=== PATIENT | female | born 1990 | race Caucasian/White ===

== ENCOUNTER 2019-06-22 17:27 | Emergency (ER) | payer BC ==
[~2019-06-22] VITALS: Ht 157.5 cm; Wt 63.5 kg
--- OUTSIDE RECORDS SUMMARY | 2019-06-22 17:31 | XMS REPORT ---
Author Author [facility] Organization [facility] Address Unknown Phone Unavailable Care Team Providers Care Certified Pest Control Technician Name Role Phone YOSVANY, BREA Unavailable Unavailable Gillian PERALTA Unavailable Unavailable Payers Payer Name Policy Type Policy Number Effective Date Expiration D ate Problems This patient has no known problems. Allergies, Adverse Reactions, Alerts Allergy Name Allergy Type Status Severity Reaction(s) Onset Date Inacti ve Date Treating Clinician Comments No Known Allergies DA Active U 2018-10-24 00:00:00 Medications This patient has no known medications. Results Test Description Test Time Test Comments Text Results Atomic Results Result Comments PLACENTA THIRD TRIMESTER 2018-10-29 14:31:00 RUN DATE: 10/29/18 [facility] PAGE 1 RUN TIME: 1618 Specimen Inquiry RUN USER: INTERFACE PATIENT: JAMAL CARTAGENA LOC: [facility] U #: [id number] AGE/SX: 28/F ROOM: [facility]2007 RE10/24/18REG DR: Lisset Ventura MD : 91 BED: A DIS: 10/29/18 STATUS: DIS IN TLOC: SPEC #: [id number] RECD: 10/26/18 STATUS: CHELSIE CARDONA #: [id number] JOZEF: 10/26/18- SUBM DR: Lisset Ventura MD ENTERED: 10/27/18 SP TYPE: PLACIII OTHR DR: Ilia Marcano MD ORDERED: LEVEL V SURGICA CODES: [id number] - PLACENTA, NOS COPIES TO: Lisset Ventura MD [address] [place], [place] [address] Ilia Marcano MD [address] [place], [place] [id number] PROCEDURES: LEVEL V SURGICA (Incomplete) TISSUES: PLACENTA, NOS - PLACENTA CLINICAL HISTORY 28 year old, 40.1 weeks, , section, PUPPS rash, failure to progress (wpd) FINAL DIAGNOSIS Placenta, francisco gestation: - term placenta - umbilical cord: paramarginal insertion, 3-vessel, 42 cm length - placental weight: actual 575 gm (50th to 75th percentile) - no inflammation of cord, membranes, or villous placenta CPT Code: 58378 scott/pita dt: 10/29/18 GROSS DESCRIPTION The specimen was received in a container, labeled with the patient's name, unit number and designated "placenta". The following attributes are observed: Cord insertion: 2 cm from margin Cord length: 42 cm Number of vessels: 3 CONTINUED ON NEXT PAGE RUN DATE: 10/29/18 [facility] PAGE 2 RUN TIME: 1618 Specimen Inquiry RUN USER: INTERFACE SPEC #: [id number] PATIENT: JAMAL CARTAGENA #[id number] (Continued) GROSS DESCRIPTION (Continued) Cord c olor: Morris-red Other cord findings: Less than 12 twists per 10 cm surface findings: Steel blue, wrinkled, glistening with focal subchorionic fibrin deposition Vasculature: Displays unremarkable blood vasculature Membranes rupture site: 1 cm to margin Membrane color: Morris Other membrane findings: Thickened The trimmed placental weight: 575 gm Disk measurement: 18.0 x 16.0 x 3.5 cm in greatest dimension Accessory lobes: None Maternal surface: Lobulated and intact Parenchyma: Red, beefy, and spongy with peripheral fibrosis Parenchyma lesions: None Cassettes: A1 through A4 danette/wpd 10/27/18 @ 1725 Signed Frederick Baez Wilfred 10/29/18 1431 END OF REPORT CBC W/AUTO DIFF 2018-10-27 07:29:00 WHITE BLOOD CELL (test code = WBC) 15.9 K/mm3 6.6-12.1 Results verified by repeat analysis RED BLOOD CELL (test code = RBC) 3.48 M/mm3 3.45-5.01 HEMOGLOBIN (test code = HGB) 7.8 g/dL 10.7-13.9 HEMATOCRIT (test code = HCT) 26.7 % 32.1-42.1 MEAN CELL VOLUME (test code = MCV) 77 fL 84.1-94.8 MEAN CELL HGB (test code = MCH) 22.4 pg 27-35 MEAN CELL HGB CONCETRATION (test code = MCHC) 29.2 gm/dL 32 .2-34.1 RED CELL DISTRIBUTION WIDTH (test code = RDW) 16.8 % 12 .4-16.5 PLATELET COUNT (test code = PLT) 176 K/mm3 133-385 IMMATURE PLATELET FRACTION (test code = IPF) 0.0 % 0.0 -10.8 MEAN PLATELET VOLUME (test code = MPV) 12.6 fl 9.1-12.7 NEUTROPHIL % (test code = NT%) 80.7 % 56.5-79.4 LYMPHOCYTE % (test code = LY%) 11.7 % 14.3-34.3 MONOCYTE % (test code = MO%) 4.7 % 5.1-10.4 EOSINOPHIL % (test code = EO%) 2.1 % 0.1-3.0 BASOPHIL % (test code = BA%) 0.4 % 0.1-1.0 NEUTROPHIL # (test code = NT#) 12.9 K/mm3 LYMPHOCYTE # (test code = LY#) 1.9 K/mm3 MONOCYTE # (test code = MO#) 0.8 K/mm3 EOSINOPHIL # (test code = EO#) 0.33 K/mm3 BASOPHIL # (test code = BA#) 0.1 K/mm3 RBC MORPHOLOGY REQUIRED (test code = RBCM) NORMAL MARIFER L PLATELET MORPHOLOGY REQUIRED (test code = PLTMR) NORMAL NORMAL AG HEPATITIS B [id number] 23:52:00* Test Item Value Reference Range Comments AG HEPATITIS B SURFACE (test code = HBSAG) NONREACTIVE NONRE ACTIVE Comments to Human Resources Generalist: WILL SEND LABS IS CONSENT FORM SIGNED FOR HIV TESTING? B HEPATITIS C [id number] 23:52:00* Test Item Value Reference Range Comments AB HEPATITIS C (test code = HCVAB) NONREACTIVE NONREACTIVE SIGNAL TO CUTOFF (test code = CUTOFF) 0.02 <0.80 Comments to Human Resources Generalist: WILL SEND LABS IS CONSENT FORM SIGNED FOR HIV TESTING? YAB [id number] 23:52:00* Test Item Value Reference Range Comments AB TREPONEMA (test code = TREPAB) NONREACTIVE NONREACTIVE Comments to Human Resources Generalist: WILL SEND LABS IS CONSENT FORM SIGNED FOR HIV TESTING? B HIV 1 23:52:00* Test Item Value Reference Range Comments AB HIV 1 2 (test code = VEN89CE) NONREACTIVE NONREACTIVE Done by [employer] HIV Ag/Ab Combo Screen Comments to Human Resources Generalist: WILL SEND LABS IS CONSENT FORM SIGNED FOR HIV TESTING? YCBC W/AUTO [id number] 23:18:00* Test Item Value Reference Range Comments WHITE BLOOD CELL (test code = WBC) 9.2 K/mm3 6.6-12.1 RED BLOOD CELL (test code = RBC) 4.06 M/mm3 3.45-5.01 HEMOGLOBIN (test code = HGB) 9.1 g/dL 10.7-13.9 HEMATOCRIT (test code = HCT) 30.8 % 32.1-42.1 MEAN CELL VOLUME (test code = MCV) 76 fL 84.1-94.8 MEAN CELL HGB (test code = MCH) 22.4 pg 27-35 MEAN CELL HGB CONCETRATION (test code = MCHC) 29.5 gm/dL 32 .2-34.1 RED CELL DISTRIBUTION WIDTH (test code = RDW) 16.3 % 12 .4-16.5 PLATELET COUNT (test code = PLT) 187 K/mm3 133-385 IMMATURE PLATELET FRACTION (test code = IPF) 0.0 % 0.0 -10.8 MEAN PLATELET VOLUME (test code = MPV) 12.1 fl 9.1-12.7 NEUTROPHIL % (test code = NT%) 63.1 % 56.5-79.4 LYMPHOCYTE % (test code = LY%) 24.4 % 14.3-34.3 MONOCYTE % (test code = MO%) 9.2 % 5.1-10.4 EOSINOPHIL % (test code = EO%) 2.4 % 0.1-3.0 BASOPHIL % (test code = BA%) 0.5 % 0.1-1.0 NEUTROPHIL # (test code = NT#) 5.8 K/mm3 LYMPHOCYTE # (test code = LY#) 2.3 K/mm3 MONOCYTE # (test code = MO#) 0.9 K/mm3 EOSINOPHIL # (test code = EO#) 0.22 K/mm3 BASOPHIL # (test code = BA#) 0.1 K/mm3 RBC MORPHOLOGY REQUIRED (test code = RBCM) NORMAL MARIFER L PLATELET MORPHOLOGY REQUIRED (test code = PLTMR) NORMAL NORMAL AG HEPATITIS B [id number] 23:11:00* Test Item Value Reference Range Comments AG HEPATITIS B SURFACE (test code = HBSAG) NONREACTIVE NONRE ACTIVE Comments to Human Resources Generalist: WILL SEND LABS IS CONSENT FORM SIGNED FOR HIV TESTING? YAB HEPATITIS C [id number] 23:11:00* Test Item Value Reference Range Comments AB HEPATITIS C (test code = HCVAB) NONREACTIVE SIGNAL TO CUTOFF (test code = CUTOFF) <0.80 Comments to Human Resources Generalist: WILL SEND LABS IS CONSENT FORM SIGNED FOR HIV TESTING? YAB [id number] 23:11:00* Test Item Value Reference Range Comments AB TREPONEMA (test code = TREPAB) NONREACTIVE NONREACTIVE Comments to Human Resources Generalist: WILL SEND LABS IS CONSENT FORM SIGNED FOR HIV TESTING? YAB HIV 1 [id number] 23:11:00* Test Item Value Reference Range Comments AB HIV 1 2 (test code = [id number]) NONREACTIVE Comments to Human Resources Generalist: WILL SEND LABS IS CONSENT FORM SIGNED FOR HIV TESTING? YCHEST 2 VIEWS [place] [address] Patient Name: JAMAL CARTAGENA MR #: [id number] : 1990 Age/Sex: 26/F Req #: [id number] Adm Physician: Ordered by: BREA BAR MD Report #: [id number] Location: [facility] Room/Bed: Procedure: [id number] DX/CHEST 2 VIEWS Exam Date: 08/10 Exam Time: 09 REPORT STATUS: Signed P ROCEDURE: X-RAY CHEST, TWO VIEWS COMPARISON: 12/05/2016. INDICATIONS: FOLLOW UP FOR PNEUMONIA FINDINGS: Lungs are main well inflated. Right in frahilar opacity is less conspicuous on the current study and is again likely related to pectus excavatum. No new consolidation, pleural effusion, or pneu mothorax. Incidental note is again made of an azygous fissure. Stable c ardiomediastinal contour. No acute osseous abnormality. CONCLUSION: N o acute cardiopulmonary abnormality. Right infrahilar opacity is less conspicuous than on the comparison radiograph and is likely attributable to pectus excavatum. Dictated by: Jalen Guzman M.D. on 12/30/2016 at 10:05 Electronically approved by: Jalen Guzman M.D. on 12/30/2016 at 10:05 Dictated By: JALEN GUZMAN MD 1005 Transcribed By: PATTIE on 12/30/16 1005 COPY TO: BREA ROMO MD CHEST 2 VIEWS [facility] [address] [place] [address] Patient Name: JAMAL CARTAGENA MR #: [id number] : 1990 Age/Sex: 26/F Req #: [id number] Adm Physician: Ordered by: BREA BAR MD Report #: [id number] Location: [facility] Room/Bed: Procedure: [id number] DX/CHEST 2 VIEWS Exam Date: 11/24 04/12 Exam Time: 1545 REPORT STATUS: Signed P ROCEDURE: Frontal and lateral views of the chest. COMPARISON: Patients [facility], DX, CHEST 2 VIEWS, 12/03/2016, 23:02. INDICATIONS: PNE UMONIA FINDINGS: Lines/tubes: None. Lungs: Lungs are well-inf lated. Right infrahilar opacity is again noted in the frontal view, with decr eased density when compared to prior exam. A questionable left opacity is not ed only in the frontal view. Pleura: There is no pleural effusion or pneumoth orax. Heart and mediastinum: The heart and the mediastinum are normal. Bones: No acute bony abnormality. Mild pectus excavatum is noted. IMP RESSION: 1. findings are likely due to mild pectus excavatum. No opaciti es are noted in the lateral view or consolidation is identified. aMrk Eubanks M.D. Dictated by: Miguel Eubanks M.D. on 12/05/2016 a t 16:47 Electronically approved by: Miguel Eubanks M.D. on 7 at 16:47 Dictated By: MIGUEL EUBANKS MD Electronically Sign ed By: MIGUEL EUBANKS MD on 12/05/161646 Transcribed By: PATTIE on 12/05/16 7 COPY TO: BREA BAR MD CHEST 2 VIEWS [place] [address] Patient Name: JAMAL CARTAGENA MR #: [id number] : 1990 Age/Sex: 26/F Req #: [id number] Adm Physician: Ordered by: GEETHA PERALTA MD Report #: [id number] Location: ER Room/Bed: Procedure: [id number] DX/CHEST 2 VIEWS Exam Date: Exam Time: 2302 REPORT STATUS: Signed CHEST 2 VIEWS, Technique: CHEST 2 VIEWS Comparison: None Clinical history: Cough DISCUSSION: Normal cardiomediastinal silhouette. Inciden shauna azygos fissure. Suggestion of bibasilar opacities only seen on frontal vie w likely related to overlying soft tissue. Lateral view is clear. No pleural e ffusion or pneumothorax. IMPRESSION: Suggestion of bibasilar opacity on f rontal view favored to be related to overlying soft tissue. Signed by: Dr Don Corbin MD on 12/04/2016 12:30 AM Dictated By: DON CORBIN MD Transcribed By: JOY on 12/04/1629 COPY TO: GEETHA PERALTA MD
== END 2019-06-22 17:38 | disposition home or self-care (01) ==
LOC: ER 17:31
DX: S61.216A Laceration without foreign body of right little finger without damage to nail, initial encounter (principal); W26.8XXA Contact with other sharp object(s), not elsewhere classified, initial encounter; Y92.008 Other place in unspecified non-institutional (private) residence as the place of occurrence of the external cause
CPT/HCPCS: 99282

== ENCOUNTER 2021-02-13 11:11 | Emergency (ER) | payer BC ==
[~2021-02-13] VITALS: Ht 157.5 cm; Wt 63.5 kg
[2021-02-13] MEDS ORDERED: CASIRIVIMAB/IMDEVIMAB 10 ML in SODIUM CHLORIDE 0.9% 100 ML IV ONE (11:45)
== END 2021-02-13 12:50 | disposition home or self-care (01) ==
LOC: ER 11:16
DX: U07.1 COVID-19 (principal); R05.9 Cough, unspecified
CPT/HCPCS: 99283; J7050